=== PATIENT | male | born 1935 | race Caucasian/White ===

== ENCOUNTER 2017-04-15 16:48 | Emergency (ER) | payer OTHER ==
[2017-04-15 17:02] VITALS: O2SAT 98
[2017-04-15 17:30] LABS: PLATELET COUNT 146 10^3/uL (150-400)
[2017-04-15 17:37] LABS: INR 1.63 (0.83-1.16); PROTIME(PATIENT) 19.5 SEC (12.0-15.0)
--- NOTE | 2017-04-15 18:26 | EDPHY ---
H & P Stated Complaint: mets from lung cancer/back pain here for er/mri Time Seen by Provider: 04/15/17 17:09 HPI/ROS: Chief complaint: Back pain History of present illness: This is an 81-year-old male with a history of metastatic lung cancer with mets to his right 6th rib who presents to the emergency department at the request of his oncologist for an MRI of the thoracic spine. Patient has had back pain for the last few weeks. The pain has been progressively worsening. His family is concerned his legs are weaker than usual, although he feels well. In addition, patient states he had an episode of a blood clot in his urine last night. Associated pain. He believes that has resolved. His oncologist checked his urine today and stated it was fine. No other associated signs or symptoms reported. Review of systems: A 10 point review of systems was obtained and other than described above was negative - Personal History Current Tetanus/Diphtheria Vaccine: Yes - Medical/Surgical History Hx Asthma: No Hx Chronic Respiratory Disease: No Hx Diabetes: No Hx Cardiac Disease: Yes Hx Renal Disease: No Hx Cirrhosis: No Hx Alcoholism: No Hx HIV/AIDS: No Hx Splenectomy or Spleen Trauma: No Other PMH: cva/afib/lung cancer/chf - Social History Smoking Status: Never smoked Constitutional: Initial Vital Signs Temperature (C) 36.4 C 04/15/17 16:58 Heart Rate 54 L 04/15/17 16:58 Respiratory Rate 18 04/15/17 16:58 Blood Pressure 125/56 H 04/15/17 16:58 O2 Sat (%) 98 04/15/17 16:58 O2 Delivery Mode Room Air Allergies/Adverse Reactions: No Known Allergies Allergy (Unverified 04/15/17 16:56) Home Medications: Medication Instructions Recorded Allopurinol 04/15/17 Digoxin 04/15/17 Fentanyl 04/15/17 Lisinopril 04/15/17 Metoprolol Succinate 04/15/17 Oxycodone HCl 04/15/17 Warfarin Sodium 04/15/17 Medical Decision Making - Diagnostics Imaging Results: Imaging Impressions Thoracic Spine MRI 04/15/17 17:44 Impression: 1. Large expansile solid enhancing mass centering at left 5th rib, expanding into the left T5-T6 neural foramen, but does not displace the cord or invade the canal. There is no canal stenosis at any level. 2. Subcutaneous enhancing nodule at the back of T5-T6, as well. 3. Additional rib lesion at left 8th rib. 4. No compression deformity. 5. While this lesion may explain left-sided mid thoracic pain, it does not explain lower extremity weakness. If additional imaging evaluation is needed for that, consider lumbar spine MRI, +/- brain MRI. E:amm Imaging: Discussed imaging studies w/ ripsaw operator Radiologist ED Course/Re-evaluation: Patient is discussed with my secondary supervising physician Dr. Asad Rodriguez. Patient presents to the emergency department with increasing back pain over the last few weeks. On my evaluation patient is nontoxic. He is afebrile and vital signs are stable. Physical exam is largely unremarkable. MRI of the thoracic spine is obtained and there is no involvement of the spinal canal or of the spinal cord. Blood studies obtained, mild leukocytosis of unclear etiology otherwise unremarkable. Urinalysis from earlier today was reviewed. I did discuss with the patient's daughter if he is on any medications to stimulate the immune system resulting in leukocytosis. She is unsure. I consulted with patient's oncology group, Dr. Groves. He is comfortable with patient following up in clinic tomorrow. I have asked patient and family to have him rechecked by his doctor tomorrow both in regards to the MRI and the laboratory findings. They asked if they can treat his constipation with anything other than Colace, I have recommended MiraLax. Home care is discussed. Return precautions are given. Family and patient voiced understanding and agreement with plan. Differential Diagnosis: Included but not limited to worsening tumor on patient's 6th rib, encroachment of tumor into the spinal canal or cord, Mets to the spinal canal or cord, abscess, bleed - Data Points Laboratory Results: Laboratory Results 04/15/17 17:15 04/15/17 17:15 04/15/17 04/15/17 04/15/17 17:15 17:15 17:15 WBC 14.37 10^3/uL H 10^3/uL (3.80-9.50) RBC 4.23 10^6/uL L 10^6/uL (4.40-6.38) Hgb 13.0 g/dL L g/dL (13.7-17.5) Hct 37.7 % L % (40.0-51.0) MCV 89.1 fL fL (81.5-99.8) MCH 30.7 pg pg (27.9-34.1) MCHC 34.5 g/dL g/dL (32.4-36.7) RDW 16.2 % H % (11.5-15.2) Plt Count 146 10^3/uL L 10^3/uL (150-400) MPV 10.1 fL fL (8.7-11.7) Neut % (Auto) Not Reported Lymph % (Auto) Not Reported [place] % (Auto) Not Reported Eos % (Auto) Not Reported Baso % (Auto) Not Reported Nucleat RBC Rel Count 0.0 % % (0.0-0.2) Absolute Neuts (auto) Not Reported Absolute Lymphs (auto) Not Reported Absolute Monos (auto) Not Reported Absolute Eos (auto) Not Reported Absolute Basos (auto) Not Reported Absolute Nucleated RBC 0.00 10^3/uL 10^3/uL (0-0.01) Immature Gran % Not Reported Seg Neutrophils % 87 % % Lymphocytes % 6 % % Monocytes % 7 % % Immature Gran # Not Reported Absolute Seg Neuts 12.50 10^/uL H 10^/uL (1.70-6.50) Absolute Lymphocytes 0.86 10^3/uL L 10^3/uL (1.00-3.00) Absolute Monocytes 1.01 10^3/uL H 10^3/uL (0.30-0.80) Platelet Estimate ADEQUATE (ADEQ) Polychromasia 1+ H PT 19.5 SEC H SEC (12.0-15.0) INR 1.63 H (0.83-1.16) APTT 29.0 SEC SEC (23.0-38.0) Sodium 138 mEq/L mEq/L (135-145) Potassium 4.7 mEq/L mEq/L (3.5-5.2) Chloride 102 mEq/L mEq/L (97-110) Carbon Dioxide 24 mEq/l mEq/l (22-31) Anion Gap 12 mEq/L mEq/L (8-16) BUN 30 mg/dL H mg/dL (7-23) Creatinine 0.9 mg/dL mg/dL (0.7-1.3) Estimated GFR > 60 Glucose 113 mg/dL H mg/dL (70-100) Calcium 8.9 mg/dL mg/dL (8.5-10.4) Departure - Departure Disposition: Home, Routine, Self-Care Clinical Impression: Back pain Qualifiers: Back pain location: thoracic back pain Chronicity: chronic Back pain laterality : midline Qualified Code(s): M54.6 - Pain in thoracic spine Leukocytosis Qualifiers: Leukocytosis type: unspecified Qualified Code(s): D72.829 - Elevated white blood cell count, unspecified Condition: Good Instructions: Back Pain (ED) Additional Instructions: Follow-up with your primary care doctor and oncologist tomorrow for recheck Continue Colace as a stool softener Can also use MiraLax as a stool softener If symptoms worsen or new symptoms develop return to the emergency room for recheck Referrals: FRANK LAWRENCE [Primary Care Provider] - As per Instructions
[2017-04-15] MEDS ORDERED: GADOBUTROL 10 ML VIAL IVP ONE (18:27)
[2017-04-15 21:07] VITALS: BP 135/76; PULSE 46; RESP 95; TEMP 97.7
== END 2017-04-15 21:07 | disposition home or self-care (01) ==
LOC: EDSTATUS 16:48
DX: M54.6 Pain in thoracic spine (principal); D72.829 Elevated white blood cell count, unspecified; Z79.01 Long term (current) use of anticoagulants; Z85.118 Personal history of other malignant neoplasm of bronchus and lung
CPT/HCPCS: 72157; 99285; A9585